=== PATIENT | female | born 1995 | race Hispanic/Latino ===

== ENCOUNTER 2022-04-21 22:14 | Day surgery (SDC) | payer SELFPAY ==
[2022-04-21 22:22] VITALS: BMI 40.4
[2022-04-21] MEDS ORDERED: hydrALAZINE 20 MG/ML VIAL SLOW IVP PRN (23:01)
[2022-04-21] MEDS ORDERED: Lactated Ringer's 1,000 ML IV SCH (23:15)
== END 2022-04-22 00:25 | disposition home or self-care (01) ==
LOC: CSHLD/OP 22:14
PROVIDERS: ATTEND Obstetrics & Gynecology
DX: O47.03 False labor before 37 completed weeks of gestation, third trimester (principal); Z98.891 History of uterine scar from previous surgery; Z3A.34 34 weeks gestation of pregnancy
CPT/HCPCS: 96360; 96361; 99283